=== PATIENT | male | born 1945 | race Caucasian/White ===

== ENCOUNTER 2019-03-17 09:03 | Emergency (ER) | payer MEDICARE ==
[~2019-03-17] VITALS: Ht 165.1 cm; Wt 68.0 kg
[~2019-03-17 09:03] MED LIST: ATOR40TA PO; CRUTCH3 USE; DIPH50 PO; FAMO20 PO; HYDACE5 PO; IBUP400 PO; OXYACE7.5T PO; PRED20 PO; Ultram50 MG PO
== END 2019-03-17 11:12 | disposition left against medical advice (07) ==
LOC: ER 09:03
DX: Z53.21 Procedure and treatment not carried out due to patient leaving prior to being seen by health care provider (principal)

== ENCOUNTER → 2019-03-18 | Outpatient (CLI) | payer MEDICARE | END | disposition home or self-care (01) | LOC: LAB SHORT 09:37 → LAB 09:37 | DX: R19.7 Diarrhea, unspecified (principal); R11.0 Nausea | CPT/HCPCS: 87015; 87045; 87046; 87205; 87899 ==

== ENCOUNTER 2021-03-16 22:10 | Emergency (ER) | payer MEDICARE, SELFPAY ==
[~2021-03-16] VITALS: Ht 167.6 cm; Wt 72.6 kg
[~2021-03-16 22:10] MED LIST changes: +DIAZ2 PO; +SILD25T
== END 2021-03-16 22:40 | disposition home or self-care (01) ==
LOC: ER 22:10
DX: S30.861A Insect bite (nonvenomous) of abdominal wall, initial encounter (principal); W57.XXXA Bitten or stung by nonvenomous insect and other nonvenomous arthropods, initial encounter
CPT/HCPCS: 10120; 99282-25

== ENCOUNTER 2024-02-28 07:47 | Day surgery (SDC) | payer OTHER ==
[~2024-02-28] VITALS: Ht 165.1 cm; Wt 71.5 kg
[~2024-02-28 07:47] MED LIST changes: +Lactated Ringer's 1,000 ML IV ONE; +Lidocaine HCl 2% 10 ML SDA ONE
[2024-02-28] MEDS ORDERED: NS 50 ML IV ONE (08:09)
[2024-02-28] MEDS ORDERED: CeFAZolin Sodium 2,000 MG VIAL ONE (08:09)
[2024-02-28] MEDS ORDERED: Lactated Ringer's 1,000 ML IV ONE (08:46)
[2024-02-28] MEDS ORDERED: propofoL 20 ML IV ONE (09:21)
[2024-02-28] MEDS ORDERED: FentaNYL Citrate 50 MCG/ML 2 ML Injection ONE ×2 (09:29→10:45)
[2024-02-28] MEDS ORDERED: Ondansetron HCl 2 MG / ML 2ML Vial ONE (10:09)
[2024-02-28] MEDS ORDERED: Ketorolac Tromethamine 30mg Vial ONE (10:45)
[2024-02-28 11:18] VITALS: BP 121/63
== END 2024-02-28 11:42 | disposition home or self-care (01) ==
LOC: ORSCSDS 07:47
PROVIDERS: Orthopaedic Surgery
PROC: 0RRU0JZ Replacement of Right Metacarpophalangeal Joint with Synthetic Substitute, Open Approach (ICD-10-PCS; principal; 2024-02-28 09:00)
DX: M19.041 Primary osteoarthritis, right hand (principal); E78.5 Hyperlipidemia, unspecified; Z79.899 Other long term (current) drug therapy
CPT/HCPCS: C1776; J0690; J1885; J2001; J2405; J2704; J3010; J7120

== ENCOUNTER → 2024-10-17 | Outpatient (CLI) | payer OTHER ==
[~2024-10-17] MED LIST changes: -Lactated Ringer's 1,000 ML IV ONE; -Lidocaine HCl 2% 10 ML SDA ONE
[2024-10-17 14:47] LABS: Adenovirus F 40/41 Not Detected (NOT DETECT); Astrovirus Not Detected (NOT DETECT); Campylobacter Sp Not Detected (NOT DETECT); Cryptosporidium Not Detected (NOT DETECT); Cyclospora Cayetanensis Not Detected (NOT DETECT); E. Coli O157 Not Detected (NOT DETECT); Entamoeba Histolytica Not Detected (NOT DETECT); Enteroaggregative E. coli-EAEC Not Detected (NOT DETECT); Enteropathogenic E. coli-EPEC Detected (NOT DETECT); Enterotoxigenic E. coli-ETEC Not Detected (NOT DETECT); Giardia Lamblia Not Detected (NOT DETECT); Norovirus GI/GII Not Detected (NOT DETECT); Plesiomonas Shigelloides Not Detected (NOT DETECT); Rotavirus A Not Detected (NOT DETECT); Salmonella Sp Not Detected (NOT DETECT); Sapovirus Not Detected (NOT DETECT); Shiga Toxin-prod E. coli-STEC Not Detected (NOT DETECT); Shigella/Enteroin E. coli-EIEC Not Detected (NOT DETECT); Vibrio Cholerae Not Detected (NOT DETECT); Vibrio Sp Not Detected (NOT DETECT); Yersinia Enterocolitica Not Detected (NOT DETECT)
== END ==
LOC: LAB SHORT 10:26 → LAB 10:26
PROVIDERS: Physician Assistant Surgical
DX: R11.10 Vomiting, unspecified (principal); R19.7 Diarrhea, unspecified
CPT/HCPCS: 87507

== ENCOUNTER → 2024-10-20 | Outpatient (CLI) | payer OTHER ==
[2024-10-20 21:39] LABS: Adenovirus F 40/41 Detected (NOT DETECT); Astrovirus Not Detected (NOT DETECT); Campylobacter Sp Not Detected (NOT DETECT); Cryptosporidium Not Detected (NOT DETECT); Cyclospora Cayetanensis Not Detected (NOT DETECT); E. Coli O157 Not Detected (NOT DETECT); Entamoeba Histolytica Not Detected (NOT DETECT); Enteroaggregative E. coli-EAEC Not Detected (NOT DETECT); Enteropathogenic E. coli-EPEC Not Detected (NOT DETECT); Enterotoxigenic E. coli-ETEC Not Detected (NOT DETECT); Giardia Lamblia Not Detected (NOT DETECT); Norovirus GI/GII Not Detected (NOT DETECT); Plesiomonas Shigelloides Not Detected (NOT DETECT); Rotavirus A Not Detected (NOT DETECT); Salmonella Sp Not Detected (NOT DETECT); Sapovirus Not Detected (NOT DETECT); Shiga Toxin-prod E. coli-STEC Not Detected (NOT DETECT); Shigella/Enteroin E. coli-EIEC Not Detected (NOT DETECT); Vibrio Cholerae Not Detected (NOT DETECT); Vibrio Sp Not Detected (NOT DETECT); Yersinia Enterocolitica Not Detected (NOT DETECT)
== END ==
LOC: LAB 17:34 → LAB SHORT 17:34
PROVIDERS: Family Medicine
DX: R19.7 Diarrhea, unspecified (principal)
CPT/HCPCS: 87324; 87507

== ENCOUNTER 2024-11-04 12:13 | Inpatient (IN) | payer OTHER ==
[~2024-11-04] VITALS: Ht 157.5 cm; Wt 64.4 kg
[2024-11-04 13:25] LABS: BASOPHILS ABSOLUTE AUTO 0.06 K/mm3 (0.00-0.23); BASOPHILS PERCENT AUTO 0 % (0-2); EOSINOPHILS ABSOLUTE AUTO 0.05 K/mm3 (0.00-0.68); EOSINOPHILS PERCENT AUTO 0 % (0-6); Hematocrit 50.9 % (37.0-53.0); Hemoglobin 16.9 g/dL (13.5-17.5); IMMATURE GRAN ABSOLUTE AUTO 0.12 K/mm3 (0.00-0.10); IMMATURE GRAN PERCENT AUTO 1 % (0-1); LYMPHOCYTES ABSOLUTE AUTO 0.29 K/mm3 (0.84-5.20); LYMPHOCYTES PERCENT AUTO 2 % (21-46); MONOCYTES ABSOLUTE AUTO 0.56 K/mm3 (0.16-1.47); MONOCYTES PERCENT AUTO 4 % (4-13); Mean Corpuscular HGB 31.3 pg (26.0-34.0); Mean Corpuscular HGB Conc 33.2 g/dL (31.5-36.5); Mean Corpuscular Volume 94 fL (80-100); Mean Platelet Volume 9.3 fL (9.1-12.4); NEUTROPHILS PERCENT AUTO 93 % (41-73); Platelet Count 284 K/mm3 (150-400); RDW Coefficient Variation 13.1 % (11.7-14.2); RDW Standard Deviation 45.2 fL (35.1-46.3); White Blood Cell Count 14.88 K/mm3 (4.00-11.30)
[2024-11-04] MEDS ORDERED: Ondansetron HCl 2 MG / ML 2ML Vial IV ONE ×2 (14:05→17:05)
[2024-11-04] MEDS ORDERED: NS 1,000 ML IV SCH (14:05)
[2024-11-04 14:06] LABS: Albumin, Blood 4.5 g/dL (3.4-5.0); Albumin/Globulin Ratio 0.9 (0.8-1.8); Bilirubin, Total 0.8 mg/dL (0.1-1.0); Bun/Creatinine Ratio 12.1 (12.0-20.0); Calcium, Blood 10.8 mg/dL (8.5-10.1); Creatinine, Blood 1.74 mg/dL (0.60-1.20); Potassium, Blood 4.5 mmol/L (3.5-5.5); Total Protein, Blood 9.5 g/dL (6.4-8.2)
[2024-11-04] MEDS ORDERED: Vancomycin HCl 125 MG Cap PO ONE (15:35)
[2024-11-04] MEDS ORDERED: Vancocin HCl125 MG PO (15:37)
[2024-11-04] MEDS ORDERED: ONDA4ODT MM (15:37)
[2024-11-04] MEDS ORDERED: Ondansetron HCl 2 MG / ML 2ML Vial IV PRN (18:25)
[2024-11-04] MEDS ORDERED: Lactated Ringer's 1,000 ML IV SCH (18:25)
[2024-11-04] MEDS ORDERED: Fidaxomicin 200 MG Tab PO SCH (18:30)
[2024-11-04 22:07] VITALS: BP 99/66
[2024-11-05] VITALS (9 sets, daily range): BP systolic 99–136; BP diastolic 63–101
[2024-11-05] MEDS ORDERED: Metoprolol Tartrate 1 MG/ML 5 ML VIAL IV PRN
[2024-11-05 03:22] LABS: Adenovirus F 40/41 Not Detected (NOT DETECT); Astrovirus Not Detected (NOT DETECT); Campylobacter Sp Not Detected (NOT DETECT); Cryptosporidium Not Detected (NOT DETECT); Cyclospora Cayetanensis Not Detected (NOT DETECT); E. Coli O157 Not Detected (NOT DETECT); Entamoeba Histolytica Not Detected (NOT DETECT); Enteroaggregative E. coli-EAEC Not Detected (NOT DETECT); Enteropathogenic E. coli-EPEC Detected (NOT DETECT); Enterotoxigenic E. coli-ETEC Not Detected (NOT DETECT); Giardia Lamblia Not Detected (NOT DETECT); Norovirus GI/GII Not Detected (NOT DETECT); Plesiomonas Shigelloides Not Detected (NOT DETECT); Rotavirus A Not Detected (NOT DETECT); Salmonella Sp Not Detected (NOT DETECT); Sapovirus Not Detected (NOT DETECT); Shiga Toxin-prod E. coli-STEC Not Detected (NOT DETECT); Shigella/Enteroin E. coli-EIEC Not Detected (NOT DETECT); Vibrio Cholerae Not Detected (NOT DETECT); Vibrio Sp Not Detected (NOT DETECT); Yersinia Enterocolitica Not Detected (NOT DETECT)
[2024-11-05 06:33] LABS: BASOPHILS ABSOLUTE AUTO 0.02 K/mm3 (0.00-0.23); BASOPHILS PERCENT AUTO 0 % (0-2); EOSINOPHILS PERCENT AUTO 0 % (0-6); Hemoglobin 14.8 g/dL (13.5-17.5); IMMATURE GRAN PERCENT AUTO 1 % (0-1); LYMPHOCYTES ABSOLUTE AUTO 0.45 K/mm3 (0.84-5.20); LYMPHOCYTES PERCENT AUTO 3 % (21-46); MONOCYTES PERCENT AUTO 8 % (4-13); Mean Corpuscular HGB 31.2 pg (26.0-34.0); Mean Corpuscular HGB Conc 33.6 g/dL (31.5-36.5); Mean Corpuscular Volume 93 fL (80-100); Mean Platelet Volume 9.2 fL (9.1-12.4); NEUTROPHILS ABSOLUTE AUTO 13.59 K/mm3 (1.96-9.15); NEUTROPHILS PERCENT AUTO 88 % (41-73); Platelet Count 249 K/mm3 (150-400); RDW Coefficient Variation 13.3 % (11.7-14.2); RDW Standard Deviation 45.4 fL (35.1-46.3); Red Blood Cell Count 4.74 M/mm3 (4.30-5.90); White Blood Cell Count 15.46 K/mm3 (4.00-11.30)
[2024-11-05 06:52] LABS: BASOPHILS PERCENT MAN 0 % (0-2); EOSINOPHILS PERCENT MAN 0 % (0-6); LYMPHOCYTES ABSOLUTE MAN 0.61 K/mm3 (0.84-5.20); LYMPHOCYTES PERCENT MAN 4 % (21-46); MONOCYTES ABSOLUTE MAN 0.46 K/mm3 (0.16-1.47); MONOCYTES PERCENT MAN 3 % (4-13); NEUTROPHILS ABSOLUTE MAN 14.37 K/mm3 (1.96-9.15); SEG NEUTROPHILS PERCENT MAN 93 % (41-73); TOTAL CELLS COUNTED 100
[2024-11-05 06:57] LABS: Magnesium, Blood 2.1 mg/dL (1.6-2.4)
[2024-11-05 07:10] LABS: Albumin, Blood 3.4 g/dL (3.4-5.0); Albumin/Globulin Ratio 0.8 (0.8-1.8); Bilirubin, Total 0.9 mg/dL (0.1-1.0); Bun/Creatinine Ratio 8.9 (12.0-20.0); Calcium, Blood 9.3 mg/dL (8.5-10.1); Creatinine, Blood 3.7 mg/dL (0.60-1.20); Globulin, Blood 4.1 g/dL (2.2-4.0); Potassium, Blood 5.1 mmol/L (3.5-5.5)
[2024-11-05 07:12] LABS: Total Protein, Blood 7.5 g/dL (6.4-8.2)
--- NOTE | 2024-11-05 07:59 | NUR ---
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 PLEASANT AND COOPERATIVE. ABLE TO MAKE NEEDS KNOWN. FULL CODE. PT ADMIT WITH RECENT HX OF C-DIFF. PT HAVING EPISODES OF HYPOTENSION, DIZZINESS, PERSISTENT WATERY DIARRHEA, NAUSEA, AND POOR INTAKE. PT ARRIVED TO ROOM AT 2200. ABLE TO XFER TO BED WITH MIN ASSIST. PT DENIES SAFETY CONCERNS. LIVES IN SINGLE LEVEL HOME WITH . STARTED LR AT 150MLS HR. ZOFRAN GIVEN FOR NAUSEA. ORIENTED PT TO ROOM AND CALL LIGHT. PT AT BEDSIDE T/O THE NIGHT. PT DENIES IGNITION SOURCES. PT ON TELE; NO HX OF PACEMAKER. NORMAL SINUS IN THE 60'S. REGULAR INTERVAL ROUNDING COMPLETE TO ASSESS AND MEET PT NEEDS.
--- NOTE | 2024-11-05 08:00 | NUR ---
MD CONTACT TELEMETRY CALLED TO NOTIFY PATIENT'S HEART RATE CONVERTED FROM NORMAL SINUS TO A FIB HEART RATE RAMNGING FROM 130s-160s. MD NOTIFIED. ONE TIME ORDER FOR DILTIAZEM 10MG IV PUSH ORDERED AND PATIENT GOING TO TRANSFER TO PCU. REPORT GIVEN TO RANDOLPH.
[2024-11-05] MEDS ORDERED: Banana Flakes/Tos 1 EA Powder Pack PO SCH (09:00)
[2024-11-05] MEDS ORDERED: Enoxaparin 40 MG/0.4 ML SYR SC SCH (09:00)
[2024-11-05] MEDS ORDERED: Diltiazem HCl 5 MG / ML 5ML Vial IV ONE (10:25)
--- NOTE | 2024-11-05 11:17 | NUR ---
TRANSFER FROM [facility] TO PCU: PT ARRIVES TO PCU VIA WHEELCHAIR. A&OX4. FOLLOWS COMMANDS. REPORTS DIZZINESS. MED RN REPORTS ADMINISTERING DILT PUSH PRIOR TO TRANSFER. PTS BLOOD PRESSURE 99/73 ON ARRIVAL. HR RANGING 100'S-140'S. REPORTS FEELING DIZZY FOR A COUPLE OF HOURS ALONG WITH NAUSEA. NAUSEA SINCE YESTERDAY AM WITH BRIEF PERIODS OF RELIEF. LR RUNNING AT 150ML/HR. NO ACUTE DISTRESS AT THIS TIME. ON CONTINUOUS CARDIAC MONITOIRING. AWAITING FURTHER ORDERS. PT DENIES ANY FURTHER NEEDS AT THIS TIME.
[2024-11-05] MEDS ORDERED: Diphenoxylat/Atrop 2.5 / 0.025MG 1 Tab PO PRN (12:15)
[2024-11-05] MEDS ORDERED: Diltiazem HCL 125MG/D5 125ML IV SCH (12:20)
[2024-11-05] MEDS ORDERED: Metoprolol Succinate 25 MG TABCR PO SCH (13:00)
--- NOTE | 2024-11-05 20:43 | NUR ---
ASSUMPTION OF CARE: PATIENT IS ALERT AND ORIENTED X 4 NO ACUTE CONCERNS, LR STARTED PER JAN. DILT ON STANDBY DURING DAY. PATIENT CURRENTLY IN SR. ON RA SPO2 >96%. EDUCATED ABOUT DISEASE PROCESS AND PLAN OF CARE. DENIES CHEST PAIN PRESSURE OR SOB.
[2024-11-05] MEDS ORDERED: Metoprolol Tartrate 1 MG/ML 5 ML VIAL IV STA (23:30)
[2024-11-06] VITALS (29 sets, daily range): BP systolic 93–140; BP diastolic 56–86
[2024-11-06 04:17] LABS: Hematocrit 37.9 % (37.0-53.0); Mean Corpuscular HGB 31.7 pg (26.0-34.0); Mean Corpuscular HGB Conc 34.3 g/dL (31.5-36.5); Mean Corpuscular Volume 92 fL (80-100); Mean Platelet Volume 9.3 fL (9.1-12.4); Platelet Count 223 K/mm3 (150-400); RDW Coefficient Variation 13.3 % (11.7-14.2); RDW Standard Deviation 45.5 fL (35.1-46.3)
[2024-11-06 04:52] LABS: Albumin, Blood 2.9 g/dL (3.4-5.0); Anion Gap 7 mmol/L (3-11); Blood Urea Nitrogen 37 mg/dL (8-24); Bun/Creatinine Ratio 13.3 (12.0-20.0); CO2, Blood 23 mmol/L (21-32); Calcium, Blood 8.9 mg/dL (8.5-10.1); Chloride, Blood 110 mmol/L (98-108); Creatinine, Blood 2.78 mg/dL (0.60-1.20); Glomerular Filtration Rate 23 (60-); Glucose, Blood 111 mg/dL (70-99); Magnesium, Blood 2.2 mg/dL (1.6-2.4); Potassium, Blood 3.3 mmol/L (3.5-5.5); Sodium, Blood 137 mmol/L (136-145); Thyroxine (T4) 7.8 ug/dL (4.5-12.1)
--- NOTE | 2024-11-06 05:17 | NUR ---
EOS: PATIENT WITH MAJOR CHANGES THROUGH THE SHIFT. AT 2311 CONVERTED FROM SR TO AFLUTTER 90-150 MAINLY THE 120 - 150. ASYMPTOMATIC BLOOD PRESSURE DID DROP WHILE BEING IN FLUTTER. SPOKE WITH RESIDENT VERSUS RESTARTING CARDIZEM AND 5 MG IV PUSH GIVEN. PATIENT RESPONDED WELL AND CONVERTED AT 0147. CONVERSION RATE WAS INITALLY 58-60'S HOWEVER, WHILE ASLEEP DID HIT A TELEMETRY LOW OF 41, ASYMPTOMATIC, BLOOD PRESSURE STABLE. DENIES CHEST PAIN PRESSURE, PALPATATIONS, OR SOB AT REST. PATIENT ONCE IN SR DENIED DIZZINESS, LIGHTHEADEDNESS WITH ORTHOSTATIC CHANGE EDUCATED ON MOBILITY. HAS BEEN ON RA THORUGH THE NIGHT. AT BEDSIDE. LR INFUSING. NO ACUTE DISTRESS OR CONCERNS.
[2024-11-06] MEDS ORDERED: Potassium Chloride 20 MEQ TabCR PO ONE (07:55)
--- NOTE | 2024-11-06 09:41 | NUR ---
PATIENT BECAME TACHYCARDIC ON TELE WENT FROM 55, 76 TO 120'S-140'S. REMAINED SINUS RHYTHM JUST TACHY. DR. BLANDON AWARE; PO METOPROLOL GIVEN. NO SIGNS OR SYMPTOMS OF DISTRESS WITH PATIENT.
[2024-11-06] MEDS ORDERED: HYDROcodone 5-APAP 325 TAB PO PRN (09:55)
[2024-11-06] MEDS ORDERED: Apixaban 5 MG Tab PO SCH (10:00)
[2024-11-06] MEDS ORDERED: Enoxaparin 30 MG/0.3 ML SYR SC SCH (10:00)
--- NOTE | 2024-11-06 10:47 | NUR ---
CALLED AND NOTIFIED DR. BLANDON THAT PATIENT IS SUSTAINING IN A FIB/FLUTTER AND AVERAGE HR OF 130S. PER DR. BLANDON TO START PATIENT BACK ON [facility] DRIP. RUG TOUCH UP PAINTER NOTIFIED.
--- NOTE | 2024-11-06 13:35 | NUR ---
PATIENT CONVERTED TO SINUS RYTHMN LAKISHA IN THE 50'S. DRIP WAS STOPPED, VITALS OBTAINED; STABLE, NO SIGNS OR SYMPTOMS OF DISTRESS WITH PATIENT HE IS ALERT AND FEELING WELL. CALL MADE TO DR. BLANDON AND NOTIFIED. NO NEW ORDERS.
--- NOTE | 2024-11-06 17:00 | NUR ---
SHIFT SUMMARY: PT A&OX4/INDEPENDENT/SBA WITH LINE MANAGEMENT TO THE RESTROOM. PATIENT REPORTS FEELING BETTER AND ONE HAD ONE EPISODE OF LIQUID STOOL TODAY. PATIENT'S ORAL INTAKE ALSO IMPROVED TODAY AND TOLERATING ORAL INTAKE. STATED IN OTHER NURSE NOTES PATIENT WENT INTO AFIB/FLUTTER AND SUSTAINING IN THE 130'S+. PATIENT WAS STARTED BACK ON A DILTIAZEM DRIP AND COVERTED BACK TO SINUS RHYTMN IN THE 50'S. SEE NURSES NOTES. PATIENT REMAINS SINUS LAKISHA, VITALS ARE STABLE, PATIENT SHOWERED THIS AFTERNOON AND TOLERATED WELL, HE IS IN BED, CALL LIGHT WITHIN REACH, NO SIGNS OR SYMPTOMS OF DISTRESS, PLAN OF CARE ONGOING.
[2024-11-07] VITALS (7 sets, daily range): BP systolic 107–137; BP diastolic 67–86
[2024-11-07 05:07] LABS: Hematocrit 35.3 % (37.0-53.0); Hemoglobin 11.7 g/dL (13.5-17.5); Mean Corpuscular HGB 31.5 pg (26.0-34.0); Mean Corpuscular HGB Conc 33.1 g/dL (31.5-36.5); Mean Corpuscular Volume 95 fL (80-100); Mean Platelet Volume 9.5 fL (9.1-12.4); Platelet Count 198 K/mm3 (150-400); RDW Coefficient Variation 13.3 % (11.7-14.2); RDW Standard Deviation 46.5 fL (35.1-46.3); Red Blood Cell Count 3.72 M/mm3 (4.30-5.90); White Blood Cell Count 7.43 K/mm3 (4.00-11.30)
--- NOTE | 2024-11-07 05:28 | NUR ---
SHIFT SUMMARY ASSUMED CARE OF PT AT 1900. P IS A/OX4. HEART SOUNDS REGULR. PT REMAINED INSR T/O THE NOC. PT INDEPENDENT IN ROOM. ASKED FOR PAIN MEDICATIN FOR SHOULDER, MEDICATED PER EMAR. STAYED IN ROM ITH PT T/O THE NOC.
[2024-11-07 05:55] LABS: Albumin, Blood 2.7 g/dL (3.4-5.0); Anion Gap 8 mmol/L (3-11); Blood Urea Nitrogen 30 mg/dL (8-24); Bun/Creatinine Ratio 15.2 (12.0-20.0); CO2, Blood 24 mmol/L (21-32); Calcium, Blood 8.5 mg/dL (8.5-10.1); Chloride, Blood 111 mmol/L (98-108); Creatinine, Blood 1.97 mg/dL (0.60-1.20); Glomerular Filtration Rate 34 (60-); Glucose, Blood 104 mg/dL (70-99); Magnesium, Blood 1.9 mg/dL (1.6-2.4); Phosphorus, Blood 2.9 mg/dL (2.5-4.9); Sodium, Blood 139 mmol/L (136-145)
--- NOTE | 2024-11-07 10:18 | NUR ---
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 ORDERS RECEIVED FOR AMIO GTT. PT TOLERATING WELL. VSS.
--- NOTE | 2024-11-07 16:37 | NUR ---
SHIFT SUMMARY: PT ALERT AND ORIENTED X4, ABLE TO FOLLOW COMMANDS AND MAKE NEEDS KNOWN. BP STABLE. AFEBRILE. SPO2 >95% ON ROOM AIR. RESPIRATIONS EVEN AND UNLABORD. LUNG SOUNDS CLEAR THROUGHOUT. HR SB 50'S. PT WITH MUTIPLE RUNS OF AFIB RVR THIS AM, ASYMPTOMATIC. CALL PLACED TO MD. CARDIOLOGY CONSULTED. ORDERS RECEIVED FOR AMIO DRIP. STARTED APPROX 1000. PT WITH NO ADDITIONAL TELE EVENTS. ABD SOFT, NON TENDER, BOWEL SOUNDS +. PULSES STRONG AND EQUAL THROUGHOUT. PT IND TO AND FROM BATHROOM. DENIES DIRRHEA THIS SHIFT. REMAINED AT BEDSIDE THROUGHOUT THE DAY, UPDATED FREQUENTLY ON PT PLAN OF CARE. POSSIBLE DISCHARGE IN AM. BED IN LOW, CALL LIGHT IN REACH, WILL REPORT TO ONCOMING RN.
[2024-11-08 00:13] VITALS: BP 123/63
[2024-11-08 04:16] VITALS: BP 129/77
--- NOTE | 2024-11-08 04:35 | NUR ---
SHIFT SUMMARY PT A&Ox4, ABLE TO MAKE NEEDS KNOWN. CONTINUING IV AMIODARONE DRIP PER EMAR WHICH IS SCHEDULED TO FINISH AT 0900. PT HAS REMAINED SINUS LAKISHA IN THE 50's WITH NO EVENTS. INDEPENDENT TO BATHROOM. DENIES ANY EPISODES OF DIARRHEA TONIGHT. MEDICATED FOR ARTHRITIC SHOULDER PAIN, ONCE, WITH GOOD EFFECT. VSS. AT BEDSIDE T/O NIGHT. BED IN LOWEST POSITION AND CALL LIGHT IN REACH.
[2024-11-08 05:27] LABS: Hematocrit 34.7 % (37.0-53.0); Hemoglobin 11.8 g/dL (13.5-17.5); Mean Corpuscular HGB 31.2 pg (26.0-34.0); Mean Corpuscular Volume 92 fL (80-100); Mean Platelet Volume 9.8 fL (9.1-12.4); Platelet Count 215 K/mm3 (150-400); RDW Coefficient Variation 12.9 % (11.7-14.2); RDW Standard Deviation 43.1 fL (35.1-46.3); Red Blood Cell Count 3.78 M/mm3 (4.30-5.90); White Blood Cell Count 6.69 K/mm3 (4.00-11.30)
[2024-11-08 06:19] LABS: Albumin, Blood 2.9 g/dL (3.4-5.0); Anion Gap 9 mmol/L (3-11); Blood Urea Nitrogen 25 mg/dL (8-24); Bun/Creatinine Ratio 14.1 (12.0-20.0); CO2, Blood 23 mmol/L (21-32); Chloride, Blood 110 mmol/L (98-108); Creatinine, Blood 1.77 mg/dL (0.60-1.20); Glomerular Filtration Rate 39 (60-); Glucose, Blood 98 mg/dL (70-99); Phosphorus, Blood 3.2 mg/dL (2.5-4.9); Potassium, Blood 4.2 mmol/L (3.5-5.5); Sodium, Blood 138 mmol/L (136-145)
[2024-11-08] MEDS ORDERED: Amiodarone HCl 200 MG Tab PO SCH (09:00)
[2024-11-08 10:30] VITALS: BP 127/75
[2024-11-08] MEDS ORDERED: AMIODARONE HCL400 M2 PO (14:33)
[2024-11-08] MEDS ORDERED: ELIQUIS5 M2 PO (14:33)
[2024-11-08] MEDS ORDERED: Norco 5-325 Ta1 EACH PO (14:34)
--- NOTE | 2024-11-08 15:39 | NUR ---
IVs REMOVED INTACT AND PRESSURE DRESSED. PT EXPRESSED UNDERSTANDING OF DC TEACHING AND DENIES FURTHER NEEDS.
== END 2024-11-08 15:25 | disposition home or self-care (01) | DRG 372 ==
LOC: ER 12:13 → ERHOLD 12:14 → MEDS 12:14 → ERHOLD 21:57 → MEDS 22:02 → PCU 11-05 06:36
PROVIDERS: Internal Medicine; Nurse Practitioner Acute Care; Physician Assistant; ADMIT Student in an Organized Health Care Education/Training Program
DX: A04.71 Enterocolitis due to Clostridium difficile, recurrent (principal); N17.9 Acute kidney failure, unspecified; E78.5 Hyperlipidemia, unspecified; E86.0 Dehydration; E83.52 Hypercalcemia; M19.90 Unspecified osteoarthritis, unspecified site; R55 Syncope and collapse; I48.0 Paroxysmal atrial fibrillation; B96.20 Unspecified Escherichia coli [E. coli] as the cause of diseases classified elsewhere; Z98.890 Other specified postprocedural states; Z79.899 Other long term (current) drug therapy; Z79.2 Long term (current) use of antibiotics
CPT/HCPCS: 36415; 76770; 80053; 80069; 83690; 83735; 84436; 84443; 85025; 85027; 87507; 93005; 93010; 93306; 96361; 96372; 96374; 96375; 96376; 99285-25; A9270; G0378; J0282; J1650; J2405; J7030; J7060; J7120